=== PATIENT | female | born 1975 | race African-American/Black ===

== ENCOUNTER → 2016-11-02 | Outpatient (CLI) | payer OTHER ==
[~2016-11-02] MED LIST: PREN1CAP7 PO
== END ==
LOC: HPND 09:03
PROVIDERS: ATTEND Obstetrics & Gynecology
DX: O09.522 Supervision of elderly multigravida, second trimester (principal); O99.212 Obesity complicating pregnancy, second trimester; O34.12 Maternal care for benign tumor of corpus uteri, second trimester
CPT/HCPCS: 76811

== ENCOUNTER 2017-02-25 23:08 | Inpatient (IN) | payer OTHER ==
--- NOTE | 2017-02-25 23:44 | PD ---
HPI Chief Complaint LOF Travel History International Travel<30 Days: No Contact w/Intl Traveler<30Days: No Known Affected Area: No History of Present Illness HPI 41y/o , IUP at 39/6 PNC complicated by AMA, obesity, BV, declined amniocentesis, posterior uterine fibroid Patient presents c/o LOF since about 10:45pm. She reports it has been constant and there are no alleviating or aggravating factors. She reports some uterine cramping but overall irregular. She denies any VB. She reports good FM. She reports the LOF has been clear. 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 7'15oz, mother believes this one is smaller than that Menarche at 11 Menses q month Menses last 3-4d Denies h/o abnl PAPs or STDs PMH: obesity PSH D&C FH: epilepsy, HTN NKDA Meds: PNV SH: denies drugs, EtOH, tobacco Para: 6 : 7 Allergies-Medications (Allergen,Severity, Reaction): Coded Allergies: No Known Allergies (Verified , 02/17/17) Home Meds Active Scripts W/O Vit A W/ Fe Fumar (Citranatal [place])27-1-260 Mg Cap1 Cap PO DAILY #90 CAP Ref 0 Prov:Jesus Leone MD 09/29/16 Review of Systems Except as stated in HPI: all other systems reviewed are Neg Physical Exam Narrative GENERAL: Well-nourished, well-developed patient. VSS AF SKIN: Warm and dry. HEAD: Normocephalic and atraumatic. EYES: No scleral icterus. No injection or drainage. ENT: No nasal drainage noted. Mucous membranes pink. Airway patent. NECK: Supple, trachea midline. No JVD. CARDIOVASCULAR: Regular rate and rhythm without murmurs, gallops, or rubs. RESPIRATORY: Breath sounds equal bilaterally. No accessory muscle use. BREASTS: deferred ABDOMEN/GI: Abdomen soft, non-tender, bowel sounds present, no rebound, no guarding Gravid to GENITOURINARY: External Genitalia: intact and normal in appearance BUS glands: normal Cervix: no cervical masses, normal rugae, grossly ROM Dilatation: 3 Effacement: 50 Station: -2 Presentation: cephalic Membranes: [ruptured] Uterine Contractions: [q3m] FHT's: Category: [1] Baseline: [130s] Reactive: [y] Variability: [moderate] Decels: [no, good accels] EXTREMITIES: No cyanosis or edema. BACK: Nontender without obvious deformity. No CVA tenderness. NEUROLOGICAL: Awake and alert. Motor and sensory grossly within normal limits. Five out of 5 muscle strength in all muscle groups. Normal speech. Skin: warm/dry, no rashes/lesions noted Psych: grossly normal memory/affect MS: grossly normal ROM, gait, muscle strength MDM Plan A/P: 41 y/o 1. IUP at 39.6 2. PROM: will admit for ROM at term, patient would like trial to enter labor spontaneously, discussed augmentation if indicated. Discussed risks/indications of labor and risks/indications of C/S. 3. GBS neg 4. Obesity 5. AMA 6. wellbeing: reassuring antentatl testing, continue Kristy Heard MD Feb 25, 2017 23:44
[2017-02-26] MEDS ORDERED: LACTATED RINGER'S 1000 ML INJ 1,000 ML IV PRN (01:01)
[2017-02-26] MEDS ORDERED: LACTATED RINGER'S 1000 ML INJ 1,000 ML IV SCH (01:01)
[2017-02-26] MEDS ORDERED: CITRIC ACID-SODIUM CITRATE LIQ 30 ML UDC PO SCH (01:15)
[2017-02-26] MEDS ORDERED: ONDANSETRON HCL 4 MG/2 ML VIAL IV PRN (01:15)
[2017-02-26] MEDS ORDERED: LIDOCAINE HCL 1% 50 ML VIAL I-DERMAL PRN (01:15)
[2017-02-26] MEDS ORDERED: SODIUM CHLORID 0.9% 500 ML INJ 500 ML IV PRN (01:15)
[2017-02-26] MEDS ORDERED: OXYTOCIN 30 UNITS-500ML PREMIX 500 ML IV ONE (01:15)
[2017-02-26] MEDS ORDERED: LIDOCAINE HCL 1% 50 ML VIAL INFIL PRN (01:15)
[2017-02-26] MEDS ORDERED: MINERAL OIL 10 ML VIAL TOPICAL PRN (01:15)
[2017-02-26] MEDS ORDERED: SODIUM CHLOR 0.9% 1000 ML INJ 1,000 ML IV PRN (01:21)
[2017-02-26 01:22] LABS: BLOOD, URINE NEG (NEG); COMMENT (UR) CULT NOT INDICATED; CULTURE IF INDICATED CULT NOT INDICATED; GLUCOSE,URINE NEG (NEG); KETONE, URINE NEG (NEG); MUCUS URINE FEW /lpf (OCC); NITRITE,URINE NEG (NEG); SQUAMOUS EPITHELIAL CELL URINE 1 /hpf (0-5); URINE COLOR YELLOW (YELLW/STRAW)
[2017-02-26 01:26] LABS: BASOPHIL % 0.2 % (0.0-2.0); EOSINOPHIL # 0.1 TH/MM3 (0-0.4); EOSINOPHIL % 1.6 % (0.0-4.0); HEMATOCRIT 33.7 % (35.0-46.0); HEMO FLAGS DIFF FINAL; LYMPH % 15.7 % (9.0-44.0); LYMPHOCYTE # 1.2 TH/MM3 (1.0-4.8); MEAN CELL VOLUME 87.3 FL (80.0-100.0); MEAN CORPUSCULAR HGB CONC 32.1 % (32.0-36.0); MONO % 6.4 % (0.0-8.0); NEUT % 76.1 % (16.0-70.0); PLATELET COUNT 162 TH/MM3 (150-450); RED BLOOD COUNT 3.85 MIL/MM3 (4.00-5.30); RED CELL DISTRIBUTION WIDTH 16.9 % (11.6-17.2); WHITE BLOOD COUNT 7.9 TH/MM3 (4.0-11.0)
--- NOTE | 2017-02-26 03:35 | HHI.HP ---
History & Physical H&P HPI Chief Complaint LOF Travel History International Travel<30 Days: No Contact w/Intl Traveler<30Days: No Known Affected Area: No History of Present Illness HPI 41y/o , IUP at 39/6 PNC complicated by AMA, obesity, BV, declined amniocentesis, posterior uterine fibroid Patient presents c/o LOF since about 10:45pm. She reports it has been constant and there are no alleviating or aggravating factors. She reports some uterine cramping but overall irregular. She denies any VB. She reports good FM. She reports the LOF has been clear. 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 Largest 7'15oz, mother believes this one is smaller than that Menarche at 11 Menses q month Menses last 3-4d Denies h/o abnl PAPs or STDs PMH: obesity PSH D&C FH: epilepsy, HTN NKDA Meds: PNV SH: denies drugs, EtOH, tobacco Para: 6 : 7 History (Limited) History Allergies-Medications Allergies-Medications (Allergen,Severity, Reaction): Coded Allergies: No Known Allergies (Verified , 02/17/17) Home Meds Active Scripts W/O Vit A W/ Fe Fumar (Citranatal [place])27-1-260 Mg Cap1 Cap PO DAILY #90 CAP Ref 0 Prov:Jesus Leone MD 09/29/16 ROS Review of Systems Except as stated in HPI: all other systems reviewed are Neg Physical Exam Physical Exam Narrative GENERAL: Well-nourished, well-developed patient. VSS AF SKIN: Warm and dry. HEAD: Normocephalic and atraumatic. EYES: No scleral icterus. No injection or drainage. ENT: No nasal drainage noted. Mucous membranes pink. Airway patent. NECK: Supple, trachea midline. No JVD. CARDIOVASCULAR: Regular rate and rhythm without murmurs, gallops, or rubs. RESPIRATORY: Breath sounds equal bilaterally. No accessory muscle use. BREASTS: deferred ABDOMEN/GI: Abdomen soft, non-tender, bowel sounds present, no rebound, no guarding Gravid to GENITOURINARY: External Genitalia: intact and normal in appearance BUS glands: normal Cervix: no cervical masses, normal rugae, grossly ROM Dilatation: 3 Effacement: 50 Station: -2 Presentation: cephalic Membranes: [ruptured] Uterine Contractions: [q3m] FHT's: Category: [1] Baseline: [130s] Reactive: [y] Variability: [moderate] Decels: [no, good accels] EXTREMITIES: No cyanosis or edema. BACK: Nontender without obvious deformity. No CVA tenderness. NEUROLOGICAL: Awake and alert. Motor and sensory grossly within normal limits. Five out of 5 muscle strength in all muscle groups. Normal speech. Skin: warm/dry, no rashes/lesions noted Psych: grossly normal memory/affect MS: grossly normal ROM, gait, muscle strength Data Data MDM MDM Plan A/P: 41 y/o 1. IUP at 39.6 2. PROM: will admit for ROM at term, patient would like trial to enter labor spontaneously, discussed augmentation if indicated. Discussed risks/indications of labor and risks/indications of C/S. 3. GBS neg 4. Obesity 5. AMA 6. wellbeing: reassuring testing, continue EFM Kristy Nguyen MD Feb 25, 2017 23:44 Kristy Nguyen MD Feb 26, 2017 03:35
--- NOTE | 2017-02-26 05:50 | PD.LABORPN ---
Subjective Subjective OBHG S: patient comfortable O: VSS AF FHT: 120s, moderate LTV, good accels, one spontaneous decel that was variable in appearance at 0515; spontaneous/resolved and reassuring since [place]: irregular SVE: unchanged A/P: 1. IUP at 40.0 2. PROM: will augment with oxytocin 3. Spontaneous decel: resolved spontaneously and reassuring since 4. GBS neg 5. wellbeing: continue EFM Objective Objective Pelvic Exam: Cervix: [-] Dilatation: [-] Effacement: [-] Station: [-] Presentation: [-] Membranes: [intact or ruptured] Uterine Contractions: [-] FHT's: Category: [-] Baseline: [-] Reactive: [-] Variability: [-] Decels: [-] Kristy Nguyen MD Feb 26, 2017 05:50
[2017-02-26] MEDS ORDERED: OXYTOCIN 30 UNITS-500ML PREMIX 500 ML IV SCH ×2 (06:00→11:30)
--- NOTE | 2017-02-26 07:37 | PD.LABORPN ---
Subjective Subjective OBHGS: patient comfortable O: VSS AF FHT: 120s, moderate LTV, good accels, no repetitive decels [place]: difficult to assess, IUPC placed withotu difficulty after consnet obtained from patient SVE: /-2 A/P: 1. IUP at 40.0 2. PROM: continue oxytocin, will increase as needed and IUPC placed to better assess ctx pattern 3. wellbeing: reassuring FHR, continue EFM 4. GBS neg Objective Objective Pelvic Exam: Cervix: [-] Dilatation: [-] Effacement: [-] Station: [-] Presentation: [-] Membranes: [intact or ruptured] Uterine Contractions: [-] FHT's: Category: [-] Baseline: [-] Reactive: [-] Variability: [-] Decels: [-] Kristy Nguyen MD Feb 26, 2017 07:37
--- NOTE | 2017-02-26 09:27 | PD.LABORPN ---
Subjective Subjective OBHGS: Patient comfortable O: VSS AF FHT: 150s, moderate LTV, good accels, questionable decelerations [place]: Difficult to assess with IUPC with questionable late decelerations, scalp electrode placed without complications SVE: 5/80/-2 A/P: 1. IUP at 40.0 2. PROM: continue oxytocin, will increase as needed 3. wellbeing: reassuring FHR, continue EFM 4. GBS neg Objective Objective Pelvic Exam: Cervix: [-] Dilatation: [-] Effacement: [-] Station: [-] Presentation: [-] Membranes: [intact or ruptured] Uterine Contractions: [-] FHT's: Category: [-] Baseline: [-] Reactive: [-] Variability: [-] Decels: [-] Esa Harden MD R2 Feb 26, 2017 09:27
--- NOTE | 2017-02-26 11:22 | PD.OB.DELI ---
Delivery Date: Feb 26, 2017 Anesthesia: Epidural Episiotomy: None Vaginal Delivery: Normal Presentation: Occiput anterior Nuchal Cord: x1 Delayed cord clamping (45 sec): Yes : Female One Minute : 7 Five Minute : 9 Weight: 2890 Placenta: Spontaneous delivery (Possible small abruption) Additional Information Mrs. Chacon is a 41 y/o G7 now P7 female who delivered via without complications. Baby marcel Chacon was delivered occiput posterior with one tight nuchal cord. Cord was not reduced, but baby was delivered without complication and cord was then reduced. APGARs 7/9 with no required resuscitation. Placenta was delivered with findings of possible small abruption. Patient was without lacerations and cervix was examined. Currently mom and baby are resting comfortably in the room. SDW: Esa Son MD R2 Feb 26, 2017 11:22
[2017-02-26] MEDS ORDERED: IBUPROFEN 600 MG TAB PO PRN (11:30)
[2017-02-26] MEDS ORDERED: SODIUM CHLORIDE 0.9% FLUSH 10 ML FLUSH IV FLUSH SCH (11:30)
[2017-02-26] MEDS ORDERED: ALUMINUM/MAGNESIUM/SIMETH 30 ML CUP PO PRN (11:30)
[2017-02-26] MEDS ORDERED: ZOLPIDEM TARTRATE 5 MG TAB PO PRN (11:30)
[2017-02-26] MEDS ORDERED: SODIUM CHLORIDE 0.9% FLUSH 10 ML FLUSH IV FLUSH PRN (11:30)
[2017-02-26] MEDS ORDERED: ACETAMINOPHEN 325 MG TAB PO PRN (11:30)
[2017-02-26] MEDS ORDERED: DOCUSATE SODIUM 50 MG/SENNA 8.6 MG TAB PO PRN (11:30)
[2017-02-26] MEDS ORDERED: oxyCODONE/ACETAMINOPHEN 5 MG/325 MG TAB PO PRN (11:30)
[2017-02-26] MEDS ORDERED: WITCH HAZEL 50%/GLYCERIN 12.5% 40 PAD JAR TOPICAL PRN (11:30)
[2017-02-26] MEDS ORDERED: BENZOCAINE 20% TOPICAL SPRAY 60 ML CAN TOPICAL PRN (11:30)
[2017-02-26] MEDS ORDERED: ONDANSETRON ODT 4 MG TAB PO PRN (11:30)
[2017-02-26] MEDS ORDERED: MEASLES, MUMPS, RUBELLA VACCINE 0.5 ML VIAL SQ ONE (16:00)
[2017-02-26] MEDS ORDERED: DIPHTH/TETANUS/ACEL PERTUSSIS (BOOSTER) 0.5 ML VIAL/PFS IM ONE (16:00)
--- NOTE | 2017-02-27 08:24 | HHI.OB ---
Subjective Post Day: 1 Remarks Pt seen and examined this morning. day # 1 AFVSS overnight. Decreased lochia. Denies dysuria. No breast tenderness. She is feeding the baby via bottle. Appetite good. No nausea or vomiting. Patient has not had a bowel movement, but does endorse passing gas. Ambulating well. Denies calf pain or shortness of breath. Otherwise, she is doing well this morning and has no other concerns. Objective Objective Remarks GENERAL: Well-nourished, well-developed patient. CARDIOVASCULAR: Regular rate and rhythm without murmurs, gallops, or rubs. RESPIRATORY: Breath sounds equal bilaterally. No accessory muscle use. ABDOMEN/GI: Abdomen soft, non-tender. Fundus: Firm, non-tender at umbilicus. GENITOURINARY: Light to moderate bleeding. EXTREMITIES: No cyanosis or edema, non-tender, without signs of DVT. Medications and IVs Current Medications Medications (Trade) Dose Ordered Sig/Randy Route Start Time Stop Time Status Last Admin Lactated Ringer's 1,000 ml @ 125 mls/hr Q8H IV 02/26/17 01:01 Lactated Ringer's 1,000 ml @ 3,000 mls/hr Q20M PRN IV 02/26/17 01:01 Sodium Chloride 500 ml @ 1,000 mls/hr ONCE PRN IV 02/26/17 01:15 03/01/17 01:14 (NS 1000 ml Inj) 1,000 ml @ 100 mls/hr Q10H PRN IV 02/26/17 01:21 Mineral Oil 10 ml 10 ml UNSCH PRN TOPICAL 02/26/17 01:15 (Pitocin 30 Units-NS 500 ml Premix) 500 ml @ 0 mls/hr TITRATE IV 02/26/17 06:00 (NS Flush) 2 ml BID IV FLUSH 02/26/17 11:30 (NS Flush) 2 ml UNSCH PRN IV FLUSH 02/26/17 11:30 (Tylenol) 650 mg Q4H PRN PO 02/26/17 11:30 (Motrin) 600 mg Q6H PRN PO 02/26/17 11:30 (Americaine 20% Top Spr) 1 spray Q4H PRN TOPICAL 02/26/17 11:30 (Tucks Pads) 1 applic QID PRN TOPICAL 02/26/17 11:30 (Jolene-Colace) 2 tab Q12H PRN PO 02/26/17 11:30 (Ambien) 5 mg HS PRN PO 02/26/17 11:30 (Mag-Al Plus Susp Liq) 15 ml Q8H PRN PO 02/26/17 11:30 (Zofran Odt) 4 mg Q6H PRN PO 02/26/17 11:30 (Percocet 5-325 Mg) 1 tab Q4H PRN PO 02/26/17 11:30 Assessment/Plan Assessment and Plan 41 y/o female who is day # 1 s/p spontaneous vaginal delivery. -Continue routine care. -Percocet and Motrin PRN pain. -Encouraged OOB. Advised pelvic rest for 6 wks. -Re: ctrl, she would like to discuss her options at her follow-up appointment.. -Anticipate discharge tomorrow pending clinical course. dw Dr. Serafin MD Discharge Planning Likely tomorrow pending clinical course Esa Harden MD R2 Feb 27, 2017 08:24
[2017-02-28 09:00] VITALS: BP 140/81; PULSE 55; RESP 16; TEMP 97.9
[2017-02-28] MEDS ORDERED: IBUP-232 PO (10:00)
--- NOTE | 2017-02-28 10:01 | HHI.DCPOC ---
Discharge Care Plan Diagnosis: (1) Vaginal delivery Your Health Problems Are: Vaginal delivery Report Symptoms to Your Doctor -Temperature above 100.5 degrees -Redness, of incision or excessive or foul smelling drainage -Unusual pain or calf pain -Increased vaginal bleeding -Painful or difficulty urinating -Feelings of extreme sadness or anxiety after 2 weeks Directions to Meet Your Goals Take your medications as prescribed Follow your dietary instruction Follow activity as directed Ensure plenty of rest for recovery Drink fluids for hydration Keep your appointments as scheduled Take your immunizations and boosters as scheduled If your symptoms worsen call your PCP, if no PCP go to Urgent Care Center or Emergency Room Smoking is Dangerous to Your Health. Avoid second hand smoke Call the 24-hour crisis hotline for domestic abuse at Lisette Mcneill MD R1 Feb 28, 2017 10:01
--- NOTE | 2017-02-28 10:23 | HHI.OB ---
Subjective Post Day: 2 Remarks Patient is a 41-year-old delivered at 40 weeks. Patient is day 2 after spontaneous vaginal delivery. Patient's pain is well-controlled. Patient reports minimal bleeding. Patient reports eating and drinking without any nausea or vomiting. Patient has passed gas but has not had a bowel movement. Patient denies chest pain and shortness of breath. Patient has been ambulating; she denies lower extremity pain. Patient reports desire for contraception; will consider Depo Provera prior to discharge. Patient has decided to bottle feed. Objective Vitals/I&O Vital Signs Date Time Temp Pulse Resp B/P Pulse Ox O2 Delivery O2 Flow Rate FiO2 02/28/17 09:00 97.9 55 16 140/81 Objective Remarks GENERAL: Well-nourished, well-developed patient. CARDIOVASCULAR: Regular rate and rhythm without murmurs, gallops, or rubs. RESPIRATORY: Breath sounds equal bilaterally. No accessory muscle use. ABDOMEN/GI: Abdomen soft, non-tender. Fundus: Firm, non-tender at umbilicus. GENITOURINARY: Light to moderate bleeding. EXTREMITIES: No cyanosis or edema, non-tender, without signs of DVT. Medications and IVs Current Medications Medications (Trade) Dose Ordered Sig/Randy Route Start Time Stop Time Status Last Admin Lactated Ringer's 1,000 ml @ 125 mls/hr Q8H IV 02/26/17 01:01 Lactated Ringer's 1,000 ml @ 3,000 mls/hr Q20M PRN IV 02/26/17 01:01 Sodium Chloride 500 ml @ 1,000 mls/hr ONCE PRN IV 02/26/17 01:15 03/01/17 01:14 (NS 1000 ml Inj) 1,000 ml @ 100 mls/hr Q10H PRN IV 02/26/17 01:21 Mineral Oil 10 ml 10 ml UNSCH PRN TOPICAL 02/26/17 01:15 (Pitocin 30 Units-NS 500 ml Premix) 500 ml @ 0 mls/hr TITRATE IV 02/26/17 06:00 (NS Flush) 2 ml BID IV FLUSH 02/26/17 11:30 (NS Flush) 2 ml UNSCH PRN IV FLUSH 02/26/17 11:30 (Tylenol) 650 mg Q4H PRN PO 02/26/17 11:30 (Motrin) 600 mg Q6H PRN PO 02/26/17 11:30 02/27/17 08:54 (Americaine 20% Top Spr) 1 spray Q4H PRN TOPICAL 02/26/17 11:30 (Tucks Pads) 1 applic QID PRN TOPICAL 02/26/17 11:30 (Jolene-Colace) 2 tab Q12H PRN PO 02/26/17 11:30 (Ambien) 5 mg HS PRN PO 02/26/17 11:30 (Mag-Al Plus Susp Liq) 15 ml Q8H PRN PO 02/26/17 11:30 (Zofran Odt) 4 mg Q6H PRN PO 02/26/17 11:30 (Percocet 5-325 Mg) 1 tab Q4H PRN PO 02/26/17 11:30 Assessment/Plan Assessment and Plan Patient is a 41-year-old delivered at 40 weeks. Patient is day 2 after spontaneous vaginal delivery. * Continue routine care. * Percocet and Motrin PRN pain. * Encouraged OOB. * Advised pelvic rest for 6 wks. * Contraception: Depo Provera prior to discharge. * Anticipate discharge today. dw MD Osito Baker,Lisette CONKLIN R1 Feb 28, 2017 10:23
[2017-02-28] MEDS ORDERED: medroxyPROGESTERone ACETATE SUSP 150 MG/ML SYRINGE IM ONE (10:30)
== END 2017-02-28 16:26 | disposition home or self-care (01) | DRG 774 ==
LOC: HOBED 23:08 → H2EA 23:47 → H1EA 02-26 12:42
PROVIDERS: ADMIT Obstetrics & Gynecology; ATTEND Obstetrics & Gynecology
PROC: 10E0XZZ Delivery of Products of Conception, External Approach (ICD-10-PCS; principal; 2017-02-26)
PROC: 10H07YZ Insertion of Other Device into Products of Conception, Via Natural or Artificial Opening (ICD-10-PCS; 2017-02-26)
DX: O42.92 Full-term premature rupture of membranes, unspecified as to length of time between rupture and onset of labor (principal); O45.93 Premature separation of placenta, unspecified, third trimester; O69.1XX0 Labor and delivery complicated by cord around neck, with compression, not applicable or unspecified; O99.214 Obesity complicating childbirth; E66.9 Obesity, unspecified; O34.13 Maternal care for benign tumor of corpus uteri, third trimester; D25.9 Leiomyoma of uterus, unspecified; Z3A.39 39 weeks gestation of pregnancy; Z37.0 Single live birth
CPT/HCPCS: 59025; 81001; 85025; 86900; 86901; J1050